=== PATIENT | female | born 1960 | race Caucasian/White ===

== ENCOUNTER 2018-08-14 23:18 | Emergency (ER) | payer BC ==
[~2018-08-14] VITALS: Ht 165.1 cm; Wt 119.5 kg
[2018-08-14] MEDS ORDERED: diphenhydrAMINE 50 MG/ML VIAL ONE (23:38)
[2018-08-14] MEDS ORDERED: DEXAMETHASONE SOD PHOS 10 MG/ML VIAL ONE (23:39)
[2018-08-14] MEDS ORDERED: diphenhydrAMINE 50 MG/ML VIAL IM ONE (23:45)
[2018-08-14] MEDS ORDERED: DEXAMETHASONE SOD PHOS 10 MG/ML VIAL IM ONE (23:45)
[2018-08-14] MEDS ORDERED: PRED50TA PO (23:46)
--- NOTE | 2018-08-14 23:47 | PHYS DOC ---
Past History Past Medical History: Migraines Past Surgical History: Alcohol Use: Occasionally Drug Use: None Adult General Chief Complaint Chief Complaint: SKIN RASH/ABSCESS HPI HPI Patient is a 58-year-old female who presents with complaint of diffuse rash and itching. Patient has been using calamine on the rash. Rash started a couple of days ago and states that she has been outside weeding and gardening quite a bit and thinks that she may have been exposed to poison katia or oak. She denies any shortness of breath.[] Review of Systems Review of Systems Constitutional: Denies fever or chills [] Respiratory: Denies cough or shortness of breath [] Cardiovascular: No additional information not addressed in HPI [] Integument: Positive rash and pruritus[] Current Medications Current Medications Current Medications Medications (Trade) Dose Ordered Sig/Diego Start Time Stop Time Status Last Admin Dose Admin Dexamethasone Sodium Phosphate (Decadron) 10 mg STK-MED ONCE 08/14/18 23:39 08/14/18 23:40 DC Diphenhydramine HCl (Benadryl) 50 mg STK-MED ONCE 08/14/18 23:38 08/14/18 23:39 DC Allergies Allergies Allergies Coded Allergies Type Severity Reaction Last Updated Verified Penicillins Allergy Unknown 08/14/18 Yes Physical Exam Physical Exam Constitutional: Well developed, well nourished, no acute distress, non-toxic appearance. [] HENT: Normocephalic, atraumatic, bilateral external ears normal, oropharynx moist, no oral exudates, nose normal. [] Eyes: PERRLA, EOMI, upper and lower eyelids are swollen bilaterally. [] Neck: Normal range of motion, no tenderness, supple, no stridor. [] Cardiovascular: Regular rate and rhythm[] Lungs & Thorax: Bilateral breath sounds clear to auscultation [] Skin: A diffuse erythematous rash is noted. Upper extremities, primarily hands and forearms noted with linear vesicular lesions. [] Current Patient Data Vital Signs Vital Signs Date Time Temp Pulse Resp B/P (MAP) Pulse Ox O2 Delivery O2 Flow Rate FiO2 08/14/18 23:18 98.2 67 20 96 Room Air 08/14/18 23:18 183/119 (140) EKG EKG [] Radiology/Procedures Radiology/Procedures [] Course & Med Decision Making Course & Med Decision Making Pertinent Labs and Imaging studies reviewed. (See chart for details) [] Dragon Disclaimer Dragon Disclaimer This electronic medical record was generated, in whole or in part, using a voice recognition dictation system. Departure Departure: Impression: Primary Impression: Contact dermatitis Disposition: 01 HOME, SELF-CARE Condition: STABLE Referrals: MARLIN SCHMID (PCP) Patient Instructions: Poison [place] Scripts Prednisone (PREDNISONE) 50 Mg Tablet 1 TAB PO DAILY for rash, #5 TAB Prov: ELLEN BLANTON Jr. DO 08/14/18 Problem Qualifiers Primary Impression: Contact dermatitis Contact dermatitis type: irritant Contact dermatitis trigger: unspecified trigger Qualified Codes: L24.9 - Irritant contact dermatitis, unspecified cause ELLEN BLANTON Jr., DO Aug 14, 2018 23:47
[2018-08-15] MEDS ORDERED: ONDANSETRON ODT 4 MG TAB.RAPDIS ONE (00:09)
[2018-08-15 00:10] VITALS: BP 110/67
[2018-08-15] MEDS ORDERED: ONDANSETRON ODT 4 MG TAB.RAPDIS PO ONE (00:15)
== END 2018-08-15 00:20 | disposition home or self-care (01) ==
LOC: ER 23:18
DX: L24.9 Irritant contact dermatitis, unspecified cause (principal); G43.909 Migraine, unspecified, not intractable, without status migrainosus; Z88.0 Allergy status to penicillin
CPT/HCPCS: 96372; 99284; J1100; J1200; Q0162